=== PATIENT | male | born 1990 ===

== ENCOUNTER 2017-05-25 19:36 | Emergency (ER) | payer SELFPAY ==
[2017-05-25] MEDS ORDERED: Metoclopramide IV* 5 MG/ML 2 ML VIAL ONE (20:37)
[2017-05-25] MEDS ORDERED: Ketorolac INJ* 30 MG/ML 1 ML VIAL IM ONE (20:38)
--- NOTE | 2017-05-25 20:40 | UC ---
Headache HPI - HPI Summary HPI Summary: 27 year old male with no significant pmhx here with headache, nausea and dizziness. Reports symptoms started one week ago with frontal throbbing headache with no change in vision. But reports headache associated with nausea and dizziness that he described as imbalance but not vertigo. Improved with ibuprofen. Pain initially was intermittent, with unknown elicit. In the past two days, more constant. 6/10 and not the worst headache of his life. - History Of Current Complaint Chief Complaint: UCDizziness Stated Complaint: LIGHT HEADED Time Seen by Provider: 05/25/17 19:49 Hx Obtained From: Patient Onset/Duration: Gradual Onset Initially Headache Was: Initial Pain Scale(0-10)= - 6 Currently Pain Is: Current Pain Scale(0-10)= - 4 Pain Intensity: 0 Timing: Constant Character: Dull Location of Headache: Frontal Aggravating Factor(s): Position Change Allevating Factor(s): Nothing Associated Signs And Symptoms: Positive: Dizziness, Nausea. Negative: Fever, Neck Pain, Neck Stiffness - Risk Factors SAH Risk Factors: Smoking Meningitis Risk Factors: Negative SDH Risk Factors: Negative - Allergies/Home Medications Allergies/Adverse Reactions: Allergies Allergy/AdvReac Type Severity Reaction Status Date / Time No Known Allergies Allergy Verified 05/25/17 20:08 Home Medications: Home Medications Ibuprofen [Advil] 600 mg PO Q8HR PRN 05/25/17 [History Confirmed 05/25/17] PMH/Surg Hx/FS Hx/Imm Hx - Surgical History Surgical History: None - Social History Alcohol Use: Weekly Substance Use Type: None Smoking Status (MU): Light Every Day Tobacco Smoker Review of Systems Constitutional: Negative Skin: Negative Eyes: Negative ENT: Negative Respiratory: Negative Cardiovascular: Negative Gastrointestinal: Nausea Genitourinary: Negative Motor: Negative Neurovascular: Negative Musculoskeletal: Negative Neurological: Headache Psychological: Negative All Other Systems Reviewed And Are Negative: Yes Physical Exam Triage Information Reviewed: Yes Appearance: Well-Appearing, No Pain Distress, Well-Nourished Vital Signs: Initial Vital Signs Temp 36.8 C 05/25/17 20:01 Pulse 66 05/25/17 20:01 Resp 15 05/25/17 20:01 BP 141/86 05/25/17 20:01 Pulse Ox 99 05/25/17 20:01 Vital Signs Reviewed: Yes ENT Exam: Normal Dental Exam: Normal Neck exam: Normal Neck: Positive: Supple, Nontender, No Lymphadenopathy Respiratory Exam: Normal Cardiovascular Exam: Normal Abdominal Exam: Normal Neurological: Positive: Alert, Muscle Tone Normal, Other: - ZAIN, EOMI, no nystagmus No pronator drift Nml FTN, HTS Nml tandem gait Psychological Exam: Normal Skin Exam: Normal Diagnostics - Laboratory Diagnostic Studies Completed/Ordered: EKG and UA. UA is negative. - EKG Cardiac Rate: Bradycardia Cardiac Rhythm: Sinus: Normal Ectopy: None ST Segment: Normal Re-Evaluation - Re-Evaluation First Eval Re-Evaluation Time: 21:01 Comment: Patient orthostatic vital signs were negative. But his headache is postural headache. Headache Course/Dx - Course Course Of Treatment: Patient given reglan and NSAID - Differential Dx/Diagnosis Differential Diagnosis/HQI/PQRI: Migraine Provider Diagnoses: Headache. Symptomatic treatment. Neuro outpatient referral Discharge - Discharge Plan Condition: Good Disposition: HOME Prescriptions: Acetaminophen TAB* [Tylenol TAB*] 650 mg PO Q4H PRN #40 tab PRN Reason: Headache Naproxen Sodium [Naproxen Sodium 275 MG TAB] 275 mg PO BID #30 tablet Patient Education Materials: Acute Headache (ED) Forms: *Work Release Referrals: Indy Portillo MD [Medical Doctor] - No Primary Care Phys,NOPCP [Primary Care Provider] - Additional Instructions: Call to make an appointment with neurologist. If the headache worsens, pleas go to the nearest emergency department.
[2017-05-25 21:26] VITALS: BP 143/75
== END 2017-05-25 21:23 | disposition home or self-care (01) ==
LOC: UCEAST 19:36
DX: R51 Headache (principal); R11.0 Nausea; R42 Dizziness and giddiness; R00.1 Bradycardia, unspecified; F17.200 Nicotine dependence, unspecified, uncomplicated
CPT/HCPCS: 81003; 93005; 96372; 99202; G0463; J1885; J2765